=== PATIENT | male | born 1965 | race American Indian/Alaskan Native ===

== ENCOUNTER 2016-05-09 11:36 | Emergency (ER) | payer SELFPAY ==
[2016-05-09 12:58] VITALS: BP 155/106
--- NOTE | 2016-05-09 17:55 | Emergency Department Report ---
Entered by TRAVIS CHACKO, acting as scribe for MAIRA FERRIS PA. ED General Adult HPI - General Chief complaint: Rectal Pain Stated complaint: HEMORRHOID Source: patient Mode of arrival: Ambulatory Limitations: No Limitations - History of Present Illness Initial comments: 50 year old male with a PMHx of HTN, presents to the ED c/o rectal pain secondary to hemorrhoids beginning 10 years ago, that became worse today. During a bowel movement this morning, the pt states that he was spotting blood from his rectal area. The rectal pain is a 6 out 10 in severity. The pt states that his rectal pain is worsened during bowel movements. he denies abdominal pain and fever. The pt is compliant with his HTN medications. The pt states that he constantly travels to other [place]. Onset/Timin -: days(s) (1 day worse), year(s) Location: buttocks Severity scale (0 -10): 6 Quality: constant Consistency: constant (going to the restroom) Improves with: none Worsens with: other (bowel movements and sitting) Associated Symptoms: nausea/vomiting. denies: fever/chills, other (abdominal pain) - Related Data Previous Rx's Medication Instructions Recorded Last Taken Type Docusate Sodium [Colace Clear CAP] 50 mg PO BID #30 capsule 05/09/16 Unknown Rx Hydrocortisone [Anucort-HC SUPPOS] 25 mg RC BID #1 supp.rect 05/09/16 Unknown Rx Lidocaine/Hydrocortisone AC 7 gm RC QID #1 cream.appl 05/09/16 Unknown Rx [Lidocaine HC 3-1% CREAM] Allergies Allergy/AdvReac Type Severity Reaction Status Date / Time No Known Allergies Allergy Unverified 05/09/16 12:54 ED Review of Systems Comment: All other systems reviewed and negative Constitutional: denies: fever Eyes: as per HPI ENT: as per HPI Respiratory: no symptoms reported Cardiovascular: denies: chest pain, palpitations Gastrointestinal: nausea, constipation, hematochezia (spotting after bowel movement this morning), other (rectal pain secondary to hemorrhoid). denies: abdominal pain, vomiting, diarrhea, hematemesis, melena Musculoskeletal: denies: back pain Skin: denies: rash, lesions Neurological: denies: weakness, confusion ED Past Medical Hx - Past Medical History Previous Medical History?: Yes Hx Hypertension: Yes - Surgical History Past Surgical History?: No - Social History Smoking Status: Never Smoker Substance Use Type: None - Medications Home Medications: Home Medications Medication Instructions Recorded Confirmed Last Taken Type Docusate Sodium [Colace Clear CAP] 50 mg PO BID #30 capsule 05/09/16 Unknown Rx Hydrocortisone [Anucort-HC SUPPOS] 25 mg RC BID #1 supp.rect 05/09/16 Unknown Rx Lidocaine/Hydrocortisone AC 7 gm RC QID #1 cream.appl 05/09/16 Unknown Rx [Lidocaine HC 3-1% CREAM] ED Physical Exam - General Limitations: No Limitations General appearance: alert, in no apparent distress - Head Head exam: Present: atraumatic, normocephalic - Eye Eye exam: Present: normal appearance - ENT ENT exam: Present: mucous membranes moist - Neck Neck exam: Present: normal inspection - Respiratory Respiratory exam: Present: normal lung sounds bilaterally. Absent: respiratory distress, wheezes, rales, rhonchi - Cardiovascular Cardiovascular Exam: Present: regular rate - GI/Abdominal GI/Abdominal exam: Present: soft. Absent: distended, tenderness, guarding, rebound, rigid - Rectal Rectal exam: Present: hemorrhoids (internal hemorrhoids not externally visible, hemorrhoid that is thrombosed was shown to me on pts phone), other (anal fissures noted on exam) - Extremities Exam Extremities exam: Present: normal inspection - Back Exam Back exam: Present: normal inspection - Neurological Exam Neurological exam: Present: alert, oriented X3 - Psychiatric Psychiatric exam: Present: normal affect, normal mood - Skin Skin exam: Present: warm, dry ED Course Vital Signs 05/09/16 12:54 Temperature 98.5 F Pulse Rate 75 Respiratory 16 Rate Blood Pressure 155/106 O2 Sat by Pulse 100 Oximetry ED Disposition Clinical Impression: Hemorrhoids Disposition: DISCHARGED TO HOME OR SELFCARE Is pt being admited?: No Condition: Stable Instructions: Hemorrhoids (ED), Hemorrhoidectomy (ED) Prescriptions: Docusate Sodium [Colace Clear CAP] 50 mg PO BID #30 capsule Hydrocortisone [Anucort-HC SUPPOS] 25 mg RC BID #1 supp.rect Lidocaine/Hydrocortisone AC [Lidocaine HC 3-1% CREAM] 7 gm RC QID #1 cream.appl Referrals: ZOEY MCCARTHY MD [Staff Physician] - 3-5 Days [facility], [Primary Care Provider] - 3-5 Days LISSETT KIRKPATRICK MD [Staff Physician] - 3-5 Days This documentation as recorded by the GINNA soni JASMINE,accurately reflects the service I personally performed and the decisions made by me,MAIRA FERRIS PA.
== END 2016-05-09 16:10 | disposition home or self-care (01) ==
LOC: ED 11:36
DX: K64.9 Unspecified hemorrhoids (principal); I10 Essential (primary) hypertension
CPT/HCPCS: 99282